=== PATIENT | female | born 1960 | race Caucasian/White ===

== ENCOUNTER 2023-03-03 14:51 | Outpatient (CLI) | payer OTHER, SELFPAY ==
--- NOTE | ~2023-03-03 | MM_ITS ---
EXAMINATION: MM scrn maricruz implant BI w caden HISTORY: Screening mammogram TECHNIQUE: Craniocaudal and mediolateral oblique 3-D tomosynthesis images with implant displacement a nd synthetic 2-D images were generated. Craniocaudal and mediolateral oblique views of the breasts wi thout implant displacement were obtained using full field digital mammography. CAD analysis was submi tted and interpreted. COMPARISON: No prior mammogram is available for comparison at this institution. BREAST PARENCHYMAL COMPOSITION: The breasts are extremely dense, which lowers the sensitivity of mamm ography. FINDINGS: Status post bilateral augmentation mammoplasty. Scattered bilateral benign calcifications. There is no evidence of suspicious mass, calcification, or architectural distortion to suggest malignancy in either breast. There has been no suspicious interv al change. IMPRESSION: 1. No mammographic evidence of malignancy. 2. Recommend routine screening mammography in one year. BI-RADS Category 1: Negative Reviewed, dictated and finalized at location A.
== END 2023-03-03 14:52 | disposition home or self-care (01) ==
LOC: ANHIMG 14:59
PROVIDERS: PCP Physician Assistant; Visit Provider Physician Assistant
DX: Z12.31 Encounter for screening mammogram for malignant neoplasm of breast (principal)
CPT/HCPCS: 77063; 77067